=== PATIENT | female | born 1950 | race Caucasian/White ===

== ENCOUNTER → 2017-01-08 | Outpatient (CLI) | payer OTHER, BC ==
[~2017-01-08] VITALS: Ht 157.5 cm; Wt 99.8 kg
[~2017-01-08] MED LIST: ALEVE220 M2 PO
== END | disposition home or self-care (01) ==
LOC: AMB 09:18
PROC: 0DJD8ZZ Inspection of Lower Intestinal Tract, Via Natural or Artificial Opening Endoscopic (ICD-10-PCS; principal; 2017-01-08)
DX: Z12.11 Encounter for screening for malignant neoplasm of colon (principal); Z86.010 Personal history of colon polyps; K64.8 Other hemorrhoids; E78.5 Hyperlipidemia, unspecified; E66.9 Obesity, unspecified; N39.46 Mixed incontinence; F32.9 Major depressive disorder, single episode, unspecified; G47.30 Sleep apnea, unspecified; Z90.710 Acquired absence of both cervix and uterus; Z87.891 Personal history of nicotine dependence; Z80.6 Family history of leukemia; Z80.42 Family history of malignant neoplasm of prostate